=== PATIENT | male | born 1950 | race Caucasian/White ===

== ENCOUNTER 2018-10-20 12:28 | Outpatient (CLI) | payer BC ==
[2018-10-20 14:27] LABS: #Eosinphils 0.4 thou/uL (0.0-0.7); #Lymphocytes 2.9 thou/uL (1.20-3.40); #Monocytes 0.7 thou/uL (0.11-0.59); #Neutrophils 2.8 thou/uL (1.40-6.50); %Basophils 0.4 % (0.0-1.0); %Eosinophils 5.4 % (0.0-10.0); %Lymphocytes 42.4 % (21.0-51.0); %Monocytes 10.1 % (0.0-10.0); %Neutrophils 41.7 % (42.0-75.0); Hemoglobin 12.5 g/dL (14.0-18.0); Mean Corpuscular Hemoglobin 35.9 pg (27.0-31.0); Mean Platelet Volume 7.9 fL (7.4-10.4); Platelet Count 190 thou/uL (130-400); RBC Distribution Width 11.1 % (11.5-14.5); White Blood Cell (WBC) Count 6.8 thou/uL (4.8-10.8)
[2018-10-20 15:01] LABS: ALT (SGPT) 21 U/L (8-55); AST (SGOT) 25 U/L (5-34); Albumin 4.1 g/dL (3.4-4.8); Alkaline Phosphatase 54 U/L (40-150); Anion Gap 11 mmol/L (10-20); BUN (Urea Nitrogen) 17 mg/dL (8.4-25.7); Bilirubin, Direct 0.2 mg/dL (0.1-0.3); Bilirubin, Total 0.5 mg/dL (0.2-1.2); Calc. Creatinine Clearance 0 mL/min (70-130); Calcium 9.2 mg/dL (7.8-10.44); Carbon Dioxide 25 mmol/L (23-31); Chloride 104 mmol/L (98-107); Estimated GFR-MDRD 69; Globulin 2.9 g/dL (2.4-3.5); Glucose 93 mg/dL (80-115); Potassium 4.1 mmol/L (3.5-5.1); Sodium 136 mmol/L (136-145)
--- NOTE | 2018-10-20 23:02 | EKG ---
Test Reason : Blood Pressure : / mmHG Vent. Rate : 052 BPM Atrial Rate : 052 BPM P-R Int : 152 ms QRS Dur : 116 ms QT Int : 494 ms P-R-T Axes : 070 038 067 degrees QTc Int : 459 ms Sinus bradycardia Otherwise normal ECG When compared with ECG of 28-FEB-2007 08:41, No significant change was found Confirmed by Tarun DIAZ ([id number]) on 10/20/2018 11:01:42 PM Referred By: [email or web address] Confirmed By:Tarun DIAZ
== END 2018-10-20 12:29 | disposition home or self-care (01) ==
LOC: LABBT 12:28
PROVIDERS: ATTEND Surgery
DX: Z01.818 Encounter for other preprocedural examination (principal); K81.1 Chronic cholecystitis
CPT/HCPCS: 80053; 80076; 85025; 93005; 93010

== ENCOUNTER 2018-10-28 09:10 | Day surgery (SDC) | payer BC ==
[2018-10-20 13:12] VITALS: BMI 25.7
[2018-10-28] MEDS ORDERED: Sodium Chloride 0.9% 100 ML ONE (10:13)
[2018-10-28] MEDS ORDERED: cefOXitin 2 GM VIAL ONE (10:13)
[2018-10-28] MEDS ORDERED: Fentanyl 100 MCG/2 ML VIAL ONE ×4 (12:16→14:33)
[2018-10-28] MEDS ORDERED: Bupivacaine/Epinephrine 0.25% 30 ML VIAL ONE (12:18)
[2018-10-28] MEDS ORDERED: Promethazine HCl 25 MG/ML VIAL ONE (13:41)
--- NOTE | 2018-10-28 15:02 | OP ---
DATE OF PROCEDURE: 10/28/2018 PREOPERATIVE DIAGNOSIS: Biliary colic. PROCEDURE PERFORMED: Laparoscopic cholecystectomy. INDICATIONS: The patient is a 68-year-old male, who has been having episodic right upper quadrant pain, radiating to the back associated with nausea. HIDA scan showed a low ejection fraction. FINDINGS: Very distended gallbladder, small caliber cystic duct. DESCRIPTION OF PROCEDURE: After informed consent was obtained, the patient was taken to the operating room, given general endotracheal anesthesia, placed in the supine position. Abdomen was prepped and draped in usual fashion. Local anesthesia was infiltrated subcutaneously and deep. A subumbilical incision was performed. Subcu divided sharply. The fascia was grasped with two stay sutures of 0 Vicryl placed in each side of midline. Midline was incised. Digital palpation revealed no local adhesions. A blunt 12-mm trocar was inserted. Pneumoperitoneum was created to a pressure of 15 mmHg. A 0-degree laparoscope was inserted under direct vision. Three 5-mm ports were placed subcostally. The gallbladder was grasped and advanced superiorly. The peritoneum was lysed distally to reveal the cystic duct and artery as well as critical view. This was triply ligated with hemoclips and divided. The gallbladder removed from its fossa utilizing electrocautery, removed from the abdomen in an endosac through the umbilical port. Hemostasis was assured. Trocars and retractors were removed. The fascia was closed with interrupted 0 Vicryl suture. The skin was closed with interrupted 4-0 Rapide. Dermabond applied. The patient tolerated the procedure well, transferred to Recovery in good condition. Sponge and needle count verified correct x2. Job ID: [id number]
== END 2018-10-28 16:40 | disposition home or self-care (01) ==
LOC: SDC 09:10
PROVIDERS: ATTEND Surgery
PROC: 0FT44ZZ Resection of Gallbladder, Percutaneous Endoscopic Approach (ICD-10-PCS; principal; 2018-10-28)
DX: K81.1 Chronic cholecystitis (principal); Z88.1 Allergy status to other antibiotic agents; Z79.82 Long term (current) use of aspirin; Z79.899 Other long term (current) drug therapy
CPT/HCPCS: 88304; J0694; J2550; J3010; J3490